=== PATIENT | female | born 2000 | race Caucasian/White ===

== ENCOUNTER 2018-02-28 19:11 | Emergency (ER) | payer OTHER ==
[2018-02-28 19:18] VITALS: BP 117/57
--- NOTE | 2018-02-28 19:41 | ED UPPER/LOWER EXTREMITY COMPL ---
History of Present Illness General Chief Complaint: Skin Rash/ Abcess Stated Complaint: R ELBOW SWELLING Source: patient Exam Limitations: no limitations Vital Signs & Intake/Output Vital Signs & Intake/Output Vital Signs Date Time Temp Pulse Resp B/P B/P Pulse O2 O2 Flow FiO2 Mean Ox Delivery Rate 02/28 1918 98.8 73 20 117/57 99 Room Air Allergies Coded Allergies: No Known Allergies (02/28/18) Reconcile Medications Cephalexin (Keflex) 500 MG CAPSULE 1 CAP PO 4 TIMES/DAY CELLULITIS Ibuprofen 600 MG TABLET 1 TAB PO TID PRN PAIN with food Sulfamethoxazole/Trimethoprim (Bactrim Ds Tablet) 800 MG-160 MG TABLET 1 TAB PO BID CELLULITIS Triage Note: PER PT SWELLING TO RT ELBOW NOTICED MORE SWELLING AND REDNESS X 3 DAYS, REPORTS SQUEEZED IT AND ONLY BLOOD CAME OUT LAST TETANUS 2 WEEKS AGO LMP 5 WEEKS AGO Triage Nurses Notes Reviewed? yes Onset: Gradual Duration: day(s): Severity: mild Associated Symptoms: swelling, redness : No Patient currently breastfeeds: No HPI: 17 yo girl presents with 3 days of right elbow swelling, redness, and pain. "I think I bumped it, and then it got red and tender... I squeezed it and a little blood came out." No fever. No pain with moving elbow. She is otherwise well. Past History Travel History Traveled to [place] past 21 day No Medical History Any Pertinent Medical History? see below for history Neurological: NONE EENT: NONE Cardiovascular: NONE Respiratory: NONE Gastrointestinal: NONE Hepatic: NONE Renal: NONE Musculoskeletal: NONE Psychiatric: NONE Endocrine: NONE Surgical History Surgical History: none Psychosocial History What is your primary language [place] Tobacco Use: Never used Family History Hx Contributory? No Review of Systems Review of Systems Constitutional: Denies: see HPI. EENTM: Reports: no symptoms. Respiratory: Reports: no symptoms. Cardiovascular: Reports: no symptoms. Gastrointestinal/Abdominal: Reports: no symptoms. Genitourinary: Reports: no symptoms. Musculoskeletal: Reports: no symptoms. Skin: Reports: no symptoms. Neurological/Psychological: Reports: no symptoms. Hematologic/Endocrine: Reports: no symptoms. Immunological: Reports: no symptoms. All Other Systems: Reviewed and Negative Physical Exam Physical Exam General Appearance: well developed/nourished, mild distress Head: atraumatic Ears, Nose, Throat: normal pharynx Cardiovascular/Respiratory: no respiratory distress Elbow Right: 3x3cm area of erythema with 0.5 cm furuncle. mildly tender. no joint involvement. Progress Differential Diagnosis: cellulitis Plan of Care: there was a minimal furuncle which was easily drained with minimal pressure. pt given keflex/bactrim.... sent home w/ rx for 10days of same... close follow up advised. Departure Departure Disposition: HOME OR SELF CARE Condition: Stable Clinical Impression Primary Impression: Furunculosis Referrals: Fernando RAJAN,Marci Joyner (PCP/Family) Departure Forms: Customer Survey General Discharge Information Prescriptions: Current Visit Scripts Cephalexin (Keflex) 1 CAP PO 4 TIMES/DAY #40 CAP Sulfamethoxazole/Trimethoprim (Bactrim Ds Tablet) 1 TAB PO BID #20 TAB Ibuprofen 1 TAB PO TID PRN PAIN #30 TAB with food
[2018-02-28] MEDS ORDERED: BACTRIM DS TAB1 EACH PO (19:49)
[2018-02-28] MEDS ORDERED: IBUPROFEN600 M1 PO (19:49)
[2018-02-28] MEDS ORDERED: KEFLEX500 M1 PO (19:49)
== END 2018-02-28 20:05 ==
LOC: ERH 19:11
DX: L02.423 Furuncle of right upper limb (principal)